=== PATIENT | female | born 1975 | race Caucasian/White ===

== ENCOUNTER → 2019-01-10 | Outpatient (CLI) | payer OTHER | LOC: MC.RAD 09:30 | DX: Z12.31 Encounter for screening mammogram for malignant neoplasm of breast (principal) ==

== ENCOUNTER 2019-04-12 11:00 | Outpatient (RCR) | payer OTHER ==
[2019-05-25] MEDS ORDERED: PROZAC 20MG20 MG PO (12:56)
[2019-05-25] MEDS ORDERED: DESYREL 50MG50 MG PO (12:56)
[2019-05-27] MEDS ORDERED: LOFIBRA54 MG PO (14:51)
[2019-05-27] MEDS ORDERED: ZOFRAN 4MG T4 MG/TAB PO (14:51)
[2019-05-27] MEDS ORDERED: NORCO 325 MG-51 TAB PO (14:52)
== END 2019-07-04 | disposition home or self-care (01) ==
LOC: WSPT
DX: M54.12 Radiculopathy, cervical region (principal)

== ENCOUNTER 2019-05-25 12:43 | Inpatient (IN) | payer OTHER ==
[~2019-05-25] VITALS: Ht 165.1 cm; Wt 70.6 kg
[2019-05-25] MEDS ORDERED: DESYREL 50MG50 MG PO (12:56)
[2019-05-25] MEDS ORDERED: PROZAC 20MG20 MG PO (12:56)
[2019-05-25 13:31] LABS: BASO % 0.4 % (0.0-2.0); EOS # 0.1 (0.0-0.7); EOS % 0.8 % (0-4.0); GRAN # 6.3 (1.4-6.5); GRAN % 79.3 % (42.2-75.2); HEMATOCRIT 41.8 % (37.0-47.0); HEMOGLOBIN 14.8 g/dl (12.5-16.0); LYMPH % 12.9 % (20.0-51.0); MEAN CELL VOLUME 99 fl (80.0-100.0); MEAN CORPUSCULAR HEMOGLOBIN 35 pg (27.0-31.0); MEAN CORPUSCULAR HGB CONC 35 g/dl (33.0-37.0); MEAN PLATELET VOLUME 9.6 fl (7.4-10.4); MONO # 0.5 (0.1-0.6); MONO % 6.3 % (1.7-9.3); PLATELET COUNT 216 K/mm3 (130-400); RED BLOOD COUNT 4.21 M/mm3 (4.10-5.30)
[2019-05-25 13:41] LABS: BILIRUBIN,TOTAL 2.4 mg/dL (0.0-1.0); POTASSIUM 3.6 mmol/L (3.4-5.0)
[2019-05-25 14:11] LABS: CALCIUM 9.7 mg/dL (8.4-10.2); CREATININE, serum 0.83 (0.52-1.25); TOTAL PROTEIN 8.9 gm/dL (6.4-8.2)
[2019-05-25 14:43] LABS: COLLECTION METHOD CLEAN CATCH
[2019-05-25 14:52] LABS: MUCOUS Present /lpf; PH 5 (5-8); URINE APPEARANCE Hazy; URINE BACTERIA Moderate /hpf; URINE BILIRUBIN Negative (NEGATIVE); URINE BLOOD 1+ (NEGATIVE); URINE COLOR Amber; URINE GLUCOSE Negative (NEGATIVE); URINE KETONE 2+ (NEGATIVE); URINE LEUKOCYTE ESTERASE Negative (NEGATIVE); URINE NITRATE Negative (NEGATIVE); URINE PROTEIN(semi-quant) 2+ (NEGATIVE); URINE RBC 0-2 /hpf; URINE UROBILINOGEN Negative (NEGATIVE)
--- NOTE | 2019-05-25 16:35 | NUR ---
Pt arrived to room 307 at this time. She is A/O x3, pt currently reports having abdominal pain to entire stomach. No nausea at this time. Pt reports she has not had a BM since Wednesday. IV to LAC free from complications. POC discussed with patient who verbalizes understanding. No needs at this time. Plan to remain NPO for time being.
[2019-05-25 16:56] VITALS: BP 158/83; PULSE 81; TEMP 99.2
--- NOTE | 2019-05-25 18:45 | NUR ---
PRN Morphine given to patient previously, pt reports pain went from 7 to a 6. Still having discomfort, Dr. Crow notified, new orders received. Second dose of pain medication administered, pt reports no improvement pain is "maintained". No nausea. POC discussed with patient who verbalizes understanding. Report given to ESTEFANY Thomas.
--- NOTE | 2019-05-25 19:00 | NUR ---
Patient continuing to complain of severe pain to abdomen after receiving PRN Morphine. Spoke with Dr. Crow. New order for Dilaudid 0.5 mg po Q4H PRN for pain.
[2019-05-25 19:12] VITALS: BP 146/77; PULSE 82; TEMP 98.6
--- NOTE | 2019-05-25 19:30 | NUR ---
Patient given PRN Dilaudid 0.5 mg IV at this time. Dr. Crow in with patient at this time.
--- NOTE | 2019-05-25 20:30 | NUR ---
Patient is alert and oriented, and able to make needs known. Reports pain to be at a 4 at this time, after having received PRN Dilaudid. Peripheral IV to left forearm patent. Site is without redness, warmth, swelling, and pain. NS running at 100 ml/hr. Denies SOB and dyspnea. LS CTA. Respirations even and unlabored. HRR. BSAx4. Capillary refill less than 3 seconds. Non-tenting skin turgor. No edema. Resting in bed watching TV at this time. Given mouth moisturizer and toothettes with water to dip them in for dry mouth. Voices no other questions, needs, or concerns at this time. Call light is within reach.
[2019-05-26] VITALS (7 sets, daily range): BP systolic 98–131; BP diastolic 51–78; PULSE 70–92; TEMP 98–98.7
--- NOTE | 2019-05-26 01:35 | NUR ---
Patient has been alternating PRN Morphine and Dilaudid per orders, and pain has been managed better since adding Dilaudid PRN. Continues to be NPO at this time. NS continues to run at 100 ml/hr per orders. Mouth moisturizer and toothettes were effective with helping with dry mouth. Voices no other questions, needs, or concerns at this time.
--- NOTE | 2019-05-26 05:20 | NUR ---
Pain continues to be controlled with pain medication as ordered. Voices no other questions, needs, or concerns at this time. Resting in bed with call light within reach.
[2019-05-26 06:10] LABS: BASO % 0.6 % (0.0-2.0); EOS # 0.1 (0.0-0.7); EOS % 2.2 % (0-4.0); GRAN # 3.3 (1.4-6.5); GRAN % 71.4 % (42.2-75.2); LYMPH # 0.9 (1.2-3.4); LYMPH % 18.9 % (20.0-51.0); MEAN CORPUSCULAR HGB CONC 34 g/dl (33.0-37.0); MEAN PLATELET VOLUME 9.9 fl (7.4-10.4); MONO # 0.3 (0.1-0.6); MONO % 6.5 % (1.7-9.3); PLATELET COUNT 147 K/mm3 (130-400); RED BLOOD COUNT 3.28 M/mm3 (4.10-5.30); REDCELL DISTRIBUTION WIDTH-CV 13.1 % (11.5-14.5)
[2019-05-26 06:16] LABS: ALBUMIN 3.5 gm/dL (3.5-5.0); BILIRUBIN,TOTAL 1.2 mg/dL (0.0-1.0); CALCIUM 7.8 mg/dL (8.4-10.2); CHOLESTEROL RISK RATIO 4.7; CREATININE, serum 0.63 (0.52-1.25); POTASSIUM 3.3 mmol/L (3.4-5.0); TOTAL PROTEIN 6.3 gm/dL (6.4-8.2)
[2019-05-26 06:30] LABS: HEMOGLOBIN 11.5 g/dl (12.5-16.0); MEAN CELL VOLUME 104 fl (80.0-100.0); MEAN CORPUSCULAR HEMOGLOBIN 35 pg (27.0-31.0)
--- NOTE | 2019-05-26 06:54 | NUR ---
Report given to day shift nurse.
--- NOTE | 2019-05-26 07:52 | NUR ---
Pt having abdominal ultrasound at this time. Reports pain 3/10, reports improvement but would like some pain meds when available.
--- NOTE | 2019-05-26 08:49 | NUR ---
Pt assessment complete. Pt is up in room brushing her teeth, she is A/O x4. Her breathing is even and unlabored on RA. Pt denies SOB. Pt denies any N/T. Currently denying N/V. Pt does report abdominal pain 10/30, requesting PRN pain medication as she would like to try and get her pain lower. PRN Dilaudid administered. Pt's abdomen is tender to palpation. Pt denies any BM's to this point, she reports having diarrhea along with N/V up until Wednesday and has had nothing since. Would like to eat today. Low potassium discussed with patient as well as replacement. Pt verbalizes understanding. No needs at this time. Call light within reach. Will continue to monitor.
--- NOTE | 2019-05-26 09:24 | NUR ---
Pain improved to 1 at this time. Worse with movement and palpation.
--- NOTE | 2019-05-26 09:45 | NUR ---
Initial visit; Patient thanked Rn Orthopaedic for looking in on her and offering prayer and God's blesings.
--- NOTE | 2019-05-26 14:44 | NUR ---
Plan to return home independently. SW met with patient in room. 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 Patient reports that she has a friend Isabella Tovar who will support her at home. Patient denies having a DPOA-HC, declined HHS, and Denies any DME use. Patient reports PCP Sakshi Luna. Patient reports obtaining RX from [facility] without difficulty. No additonal care concerns reported. Action: NHUNG educated on home health and community support. No additional concerns identified.
--- NOTE | 2019-05-26 18:25 | NUR ---
Pt had a better day. Denied the sharp pains, reports more tenderness worse with movement. No BM today. Tolerating clears, no N/V. Kpad provided to patient. IVF infusing without complications. No needs at this time.
--- NOTE | 2019-05-26 19:20 | NUR ---
Patient assessed at this time. Alert and oriented x 4, and able to make needs known. Given PRN Morphine for pain to abdomen/back as requested. Peripheral IV to left AC is without redness, warmth, swelling, and pain. NS running at 100 ml/hr per orders. Denies SOB and dyspnea. LS CTA. Respirations even and unlabored. HRR. Capillary refill less than 3 seconds. Non-tenting skin turgor. BSAx4. No edema. Given jello and popsicle as requested. Voices no other questions, needs, or concerns at this time. Resting in bed watching TV at this time. K-pad to abdomen for pain relief as well. Call light is within reach.
--- NOTE | 2019-05-26 21:45 | NUR ---
Patient called and stated she was ready to go to bed. Requested PRN Dilaudid and Trazadone. Given per orders. Voiced no other questions, needs, or concerns at this time. Resting in bed with call light within reach.
--- NOTE | 2019-05-27 03:14 | NUR ---
Patient woke up and complained of pain. Given PRN Dilaudid per orders. Voices no other questions, needs, or concerns at this time. Resting in bed with call light within reach.
[2019-05-27 03:36] VITALS: BP 107/49; PULSE 64; TEMP 98.3
--- NOTE | 2019-05-27 05:25 | NUR ---
No further complaints of pain or discomfort. Voices no other questions, needs, or concerns at this time. Resting in bed with call light within reach.
[2019-05-27 06:24] LABS: BASO % 0.6 % (0.0-2.0); EOS # 0.1 (0.0-0.7); EOS % 3.4 % (0-4.0); GRAN # 1.9 (1.4-6.5); GRAN % 58.9 % (42.2-75.2); HEMOGLOBIN 11.1 g/dl (12.5-16.0); LYMPH # 0.9 (1.2-3.4); LYMPH % 29.3 % (20.0-51.0); MEAN CELL VOLUME 104 fl (80.0-100.0); MEAN CORPUSCULAR HEMOGLOBIN 34 pg (27.0-31.0); MEAN CORPUSCULAR HGB CONC 33 g/dl (33.0-37.0); MEAN PLATELET VOLUME 9.6 fl (7.4-10.4); MONO # 0.2 (0.1-0.6); MONO % 7.5 % (1.7-9.3); PLATELET COUNT 155 K/mm3 (130-400); RED BLOOD COUNT 3.23 M/mm3 (4.10-5.30); REDCELL DISTRIBUTION WIDTH-CV 12.9 % (11.5-14.5)
[2019-05-27 06:26] LABS: ALBUMIN 3.5 gm/dL (3.5-5.0); BILIRUBIN,TOTAL 0.9 mg/dL (0.0-1.0); CALCIUM 7.9 mg/dL (8.4-10.2); CREATININE, serum 0.6 (0.52-1.25); POTASSIUM 3.6 mmol/L (3.4-5.0); TOTAL PROTEIN 6.4 gm/dL (6.4-8.2)
[2019-05-27 06:33] LABS: HEMATOCRIT 33.7 % (37.0-47.0)
[2019-05-27 07:53] VITALS: BP 126/64; PULSE 71; TEMP 98
[2019-05-27 11:48] VITALS: BP 121/53; PULSE 81; TEMP 98
--- NOTE | 2019-05-27 12:00 | NUR ---
PT EATING LUNCH. DID HAVE SOME C/O PAIN IN LEFT REAR UPPER FLANK AREA THAT WAS DIFFERENT THEN ORGINGAL PAIN THAT BROUGHT HER INTO ER. THIS NURSE INFORMED PROVIDER, PROVIDER STATED IT WAS FROM PANCREATITIS. MO C/O N/V AT THIS TIME. THIS NURSE PROIVIDED PAIN PILL. NO OTHER ISSUES VOICED AT THIS TIME.
--- NOTE | 2019-05-27 14:00 | NUR ---
PT INQURING ABOUT DISCHARGING. PT STATED HAD NO ISSUES WITH TOLERATING LOW FAT DIET. STATED PAIN MED HAD HELPED CONTROL PAIN. THIS NURSE WILL TALK TO PROVIDER ABOUT DC.
[2019-05-27] MEDS ORDERED: ZOFRAN 4MG T4 MG/TAB PO (14:51)
[2019-05-27] MEDS ORDERED: LOFIBRA54 MG PO (14:51)
[2019-05-27] MEDS ORDERED: NORCO 325 MG-51 TAB PO (14:52)
--- NOTE | 2019-05-27 15:25 | NUR ---
PT DISCHARGE EDUCATION WAS DISCUSSED WITH PT, SIGNATURES OBTAINED. SCRIPT GIVEN TO PT. IV REMOVED. PT STATED THAT SHE NEEDED TO GO TO HER OFFICE TO GET SOME BELONGINGS BEFORE HEADING HOME. THIS NURSE INQUIRED WITH CHARGE NURSE ABOUT ESCORTING PT JAYDON DUE TO PT NEEDING TO GO TO HER OFFICE, CHARGE NURSE STATED THAT LONG PT WAS FEELING FINE AND DENIED NEED FOR ESCORT THAT WOULD BE OKAY. PT STATED THAT SHE FELT FINE TO LEAVE WITHOUT ESCORT. NO OTHER ISSUES OR CONSERNS VOICED.
== END 2019-05-27 15:25 | disposition home or self-care (01) | DRG 439 ==
LOC: COL.ER 12:43 → MEDICAL 15:34
PROVIDERS: Nurse Practitioner Family; Physician Assistant; ADMIT Family Medicine
DX: K85.20 Alcohol induced acute pancreatitis without necrosis or infection (principal); F33.9 Major depressive disorder, recurrent, unspecified; G47.00 Insomnia, unspecified; L30.9 Dermatitis, unspecified; E87.6 Hypokalemia; E78.1 Pure hyperglyceridemia
CPT/HCPCS: 99222-AI; 99233-AI; 99239; J1170; J1650; J1885; J2270; J2405; J3010; J3480; J7030; Q9967

== ENCOUNTER 2020-10-20 09:29 | Inpatient (IN) | payer BC ==
[~2020-10-20] VITALS: Ht 165.1 cm; Wt 68.2 kg
[~2020-10-20 09:29] MED LIST: DESYREL 50MG50 MG PO; LOFIBRA54 MG PO; NORCO 325 MG-51 TAB PO; PROZAC 20MG20 MG PO; ZOFRAN 4MG T4 MG/TAB PO
[2020-10-20 10:10] LABS: HEMOGLOBIN 12.4 g/dl (12.5-16.0); MEAN CELL VOLUME 93 fl (80.0-100.0); MEAN CORPUSCULAR HEMOGLOBIN 33 pg (27.0-31.0); MEAN CORPUSCULAR HGB CONC 35 g/dl (33.0-37.0); MEAN PLATELET VOLUME 9.4 fl (7.4-10.4); PLATELET COUNT 219 K/mm3 (130-400); RED BLOOD COUNT 3.79 M/mm3 (4.10-5.30); REDCELL DISTRIBUTION WIDTH-CV 14.3 % (11.5-14.5)
[2020-10-20 10:14] LABS: HEMATOCRIT 35.2 % (37.0-47.0)
[2020-10-20 10:21] LABS: BILIRUBIN,TOTAL 2.9 mg/dL (0.0-1.0); C-REACTIVE PROTEIN 0.7 mg/dL (0.0-0.9); CALCIUM 9.3 mg/dL (8.4-10.2); CREATININE, serum 0.55 (0.52-1.25); POTASSIUM 3.4 mmol/L (3.4-5.0)
[2020-10-20 10:51] LABS: BAND 1 % (0-10); BASOPHIL 1 % (0-2); LYMPHOCYTE 4 % (20.0-51.0); NEUTROPHILS 91 % (42.0-75.2); PLATELET ESTIMATE NORMAL (NORMAL)
[2020-10-20 11:31] LABS: CREATINE KINASE 149 U/L (30-135); LIPASE 164 U/L (23-300)
[2020-10-20 11:33] LABS: ALCOHOL(ethanol),MEDICAL < 10 mg/dL
[2020-10-20 13:06] LABS: COLLECTION METHOD CLEAN CATCH
[2020-10-20 13:12] LABS: PH 9 (5-8); SQUAMOUS EPITHELIAL None Seen /hpf; URINE APPEARANCE Clear; URINE BACTERIA None Seen /hpf; URINE BILIRUBIN Negative (NEGATIVE); URINE BLOOD Negative (NEGATIVE); URINE COLOR Straw; URINE GLUCOSE Negative (NEGATIVE); URINE KETONE 1+ (NEGATIVE); URINE LEUKOCYTE ESTERASE Negative (NEGATIVE); URINE NITRATE Negative (NEGATIVE); URINE PROTEIN(semi-quant) Negative (NEGATIVE); URINE RBC 0-2 /hpf; URINE UROBILINOGEN Negative (NEGATIVE)
[2020-10-20] MEDS ORDERED: PROZAC40 MG PO (13:27)
--- NOTE | 2020-10-20 15:00 | NUR ---
Patient admission assessment completed, alert/oriented, vital signs stable, denies pain or discomfort, reports feelings better after having received med sin the ED, some mild tremors noted visually, heart RRR/ distal pules are palapble, lungs CTA/ no resp.difficulty, started on IVF and Mg replacement, patient denies heavy ETOH use/ labs and clinical presenttation point towards ETOH withdraw however and hosptialist ordered for CIWA protocol, meds/allegies/pharmy reviewed, placed on no free water/ 2L fluid restrict due to low sodium, will continue to monitor
[2020-10-20 16:36] VITALS: BP 149/93; PULSE 105; TEMP 99.5
[2020-10-20 18:05] LABS: CALCIUM 9.3 mg/dL (8.4-10.2); CREATININE, serum 0.72 (0.52-1.25); POTASSIUM 3.3 mmol/L (3.4-5.0)
--- NOTE | 2020-10-20 19:05 | NUR ---
Received report from Kieran. Patient awake in bed. She is alert and oriented. Call light within reach. She's requesting for Trazodone before she sleeps and additional Gatorade.
[2020-10-20 19:18] VITALS: BP 132/75; PULSE 104; TEMP 98.6
--- NOTE | 2020-10-20 20:05 | NUR ---
Called Tara OVALLE that patient's latest potassium was 3.3 and asked if we can do potassium protocol. Tara placed an order. Assesment done.Informed patient about potassium replacement and monitoring her vital signs every 2 hours. Patient verbalizes understanding. She complains of mild headache. Tylenol will be given. She is independent in the room. Lungs are clear. Call light within reach.
[2020-10-20 21:53] VITALS: BP 133/76; PULSE 100; TEMP 98.7
[2020-10-20 23:19] VITALS: BP 129/73; PULSE 102; TEMP 97.8
[2020-10-21 02:04] VITALS: BP 132/75; PULSE 112; TEMP 98.8
[2020-10-21 03:49] VITALS: BP 140/83; PULSE 80; TEMP 97.8
[2020-10-21 06:08] VITALS: BP 138/70; PULSE 79; TEMP 98.1
[2020-10-21 06:22] LABS: EOS # 0.1 (0.0-0.7); EOS % 1.7 % (0-4.0); GRAN # 1.7 (1.4-6.5); GRAN % 58.9 % (42.2-75.2); LYMPH # 0.9 (1.2-3.4); LYMPH % 31.6 % (20.0-51.0); MEAN CELL VOLUME 96 fl (80.0-100.0); MEAN CORPUSCULAR HEMOGLOBIN 33 pg (27.0-31.0); MEAN CORPUSCULAR HGB CONC 34 g/dl (33.0-37.0); MONO # 0.2 (0.1-0.6); MONO % 6.5 % (1.7-9.3); PLATELET COUNT 190 K/mm3 (130-400); RED BLOOD COUNT 3.94 M/mm3 (4.10-5.30); REDCELL DISTRIBUTION WIDTH-CV 14.9 % (11.5-14.5)
[2020-10-21 06:37] LABS: ALBUMIN 4.4 gm/dL (3.5-5.0); BILIRUBIN,TOTAL 1.5 mg/dL (0.0-1.0); CALCIUM 8.9 mg/dL (8.4-10.2); CREATININE, serum 0.64 (0.52-1.25); MAGNESIUM 2.6 mg/dL (1.6-2.3); POTASSIUM 3.3 mmol/L (3.4-5.0); TOTAL PROTEIN 7.6 gm/dL (6.4-8.2)
[2020-10-21 07:40] VITALS: BP 143/94; PULSE 82; TEMP 97.9
--- NOTE | 2020-10-21 07:50 | NUR ---
Pt assessment complete. Pt laying in bed upon entry, she is A/O x4. Her breathing is even and unlabored on RA. Denies SOB. Pt currently denies pain. No N/V, drinking gatorade without issues. IVF infusing. No further needs call light within reach.
[2020-10-21] MEDS ORDERED: MAG-OX 400400 MG/TAB PO (08:43)
--- NOTE | 2020-10-21 09:20 | NUR ---
Initial visit; Patient states she is due to be discharged today and thanked Legal Researcher for looking in on her, listening and offering prayer and God's blessings.
[2020-10-21 09:53] VITALS: BP 124/72; PULSE 96; TEMP 98.3
--- NOTE | 2020-10-21 10:35 | NUR ---
IV to RAC dc'd, catheter tip intact. Discharge instructions and paperwork reviewed with patient. All questions answered at this time. Awaiting ride at this time.
--- NOTE | 2020-10-21 10:56 | NUR ---
Pt walked out of facility at this time.
[2020-10-21 17:34] LABS: FOLATE (FOLIC ACID) 9.9 ng/mL (7.0-31.4)
== END 2020-10-21 10:57 | disposition home or self-care (01) | DRG 641 ==
LOC: COL.ER 09:29 → MEDICAL 12:21
PROVIDERS: Physician Assistant; ADMIT Internal Medicine
DX: E87.1 Hypo-osmolality and hyponatremia (principal); F10.139 Alcohol abuse with withdrawal, unspecified; E87.6 Hypokalemia; E87.2 Acidosis; E83.42 Hypomagnesemia; R20.2 Paresthesia of skin; F32.9 Major depressive disorder, single episode, unspecified; G47.00 Insomnia, unspecified; Z90.89 Acquired absence of other organs; Z98.51 Tubal ligation status
CPT/HCPCS: 99222-AI; 99239; J1650; J1885; J2060; J2405; J3475; J7030

== ENCOUNTER 2020-10-22 21:59 | Observation (INO) | payer BC ==
[~2020-10-22] VITALS: Ht 165.1 cm; Wt 68.2 kg
[~2020-10-22 21:59] MED LIST changes: +MAG-OX 400400 MG/TAB PO; +PROZAC40 MG PO
[2020-10-22 22:46] LABS: COLLECTION METHOD CLEAN CATCH
[2020-10-22 22:51] LABS: BASO % 0.4 % (0.0-2.0); EOS # 0.1 (0.0-0.7); EOS % 0.8 % (0-4.0); GRAN # 5.3 (1.4-6.5); GRAN % 72.5 % (42.2-75.2); HEMATOCRIT 39.5 % (37.0-47.0); HEMOGLOBIN 13.6 g/dl (12.5-16.0); LYMPH # 1.6 (1.2-3.4); LYMPH % 21.5 % (20.0-51.0); MEAN CELL VOLUME 97 fl (80.0-100.0); MEAN CORPUSCULAR HEMOGLOBIN 34 pg (27.0-31.0); MEAN CORPUSCULAR HGB CONC 34 g/dl (33.0-37.0); MEAN PLATELET VOLUME 10.2 fl (7.4-10.4); MONO # 0.3 (0.1-0.6); MONO % 4.4 % (1.7-9.3); PLATELET COUNT 178 K/mm3 (130-400); RED BLOOD COUNT 4.06 M/mm3 (4.10-5.30); REDCELL DISTRIBUTION WIDTH-CV 14.6 % (11.5-14.5)
[2020-10-22 22:55] LABS: PH 6 (5-8); SQUAMOUS EPITHELIAL 0-2 /hpf; URINE APPEARANCE Clear; URINE BACTERIA Rare /hpf; URINE BILIRUBIN Negative (NEGATIVE); URINE BLOOD Negative (NEGATIVE); URINE COLOR Straw; URINE GLUCOSE Negative (NEGATIVE); URINE KETONE Negative (NEGATIVE); URINE LEUKOCYTE ESTERASE Negative (NEGATIVE); URINE NITRATE Negative (NEGATIVE); URINE PROTEIN(semi-quant) Negative (NEGATIVE); URINE RBC 0-2 /hpf; URINE UROBILINOGEN Negative (NEGATIVE)
[2020-10-22 23:01] LABS: ALBUMIN 4.6 gm/dL (3.5-5.0); BILIRUBIN,TOTAL 1.3 mg/dL (0.0-1.0); CALCIUM 8.9 mg/dL (8.4-10.2); CREATININE, serum 0.62 (0.52-1.25); TOTAL PROTEIN 7.8 gm/dL (6.4-8.2)
[2020-10-22 23:12] LABS: POTASSIUM 2.9 mmol/L (3.4-5.0)
--- NOTE | 2020-10-23 02:23 | NUR ---
PATIENT WAS RECEIVED FROM ED ON A CART ON RA.HAS IVF IN GOOD PROGRESS.ORIENTATION DONE.NO OTHER NEEDS AT THIS TIME.ASSESSMENT DONE.
[2020-10-23 04:12] VITALS: BP 139/79; PULSE 75; TEMP 97.9
--- NOTE | 2020-10-23 04:27 | NUR ---
PATIENT REPORT OF ABD PAIN DESPITE MORPHINR IV.LISBET MANDUJANO INFORMED.PATIENT INFORMRD OF THE SSME
--- NOTE | 2020-10-23 05:41 | NUR ---
PATIENT DUE MEDS GIVEN ON POTASSIUM ORAL REPLACEMENT,REPORTS PAIN AT 8 NORCO GIVEN,IVFS CONTINUED.NO OTHER NEEDS AT THIS TIME
--- NOTE | 2020-10-23 07:00 | NUR ---
sitting up in bed doubled over c/o pain, bedside shift report received from ESTEFANY Alvarado
[2020-10-23 07:13] LABS: BASO % 0.8 % (0.0-2.0); EOS # 0.1 (0.0-0.7); EOS % 1.5 % (0-4.0); GRAN # 2.5 (1.4-6.5); GRAN % 62.7 % (42.2-75.2); LYMPH # 1.2 (1.2-3.4); LYMPH % 30.4 % (20.0-51.0); MEAN CELL VOLUME 96 fl (80.0-100.0); MEAN CORPUSCULAR HGB CONC 34 g/dl (33.0-37.0); MEAN PLATELET VOLUME 10.2 fl (7.4-10.4); MONO # 0.2 (0.1-0.6); MONO % 4.3 % (1.7-9.3); PLATELET COUNT 148 K/mm3 (130-400); RED BLOOD COUNT 3.53 M/mm3 (4.10-5.30); REDCELL DISTRIBUTION WIDTH-CV 14.6 % (11.5-14.5)
[2020-10-23 07:18] LABS: HEMOGLOBIN 11.5 g/dl (12.5-16.0); MEAN CORPUSCULAR HEMOGLOBIN 33 pg (27.0-31.0)
--- NOTE | 2020-10-23 07:20 | NUR ---
medicated with moprhine 2mg slow IV for c/os pain 05/02,
[2020-10-23 07:27] LABS: ALBUMIN 3.6 gm/dL (3.5-5.0); BILIRUBIN,TOTAL 0.9 mg/dL (0.0-1.0); CALCIUM 8.1 mg/dL (8.4-10.2); CREATININE, serum 0.5 (0.52-1.25); POTASSIUM 4.5 mmol/L (3.4-5.0); TOTAL PROTEIN 6.2 gm/dL (6.4-8.2)
--- NOTE | 2020-10-23 08:00 | NUR ---
in bed with TV on, states some relief from morphine but is not doubled over in pain at this time,
--- NOTE | 2020-10-23 08:30 | NUR ---
full assessment completed, see interventions for further info,
--- NOTE | 2020-10-23 09:45 | NUR ---
watching TV and taking clear liquids slowly, states is still having some pain but it is better, informed her not to have anything else except for water so she can have ultrasound later today
[2020-10-23 09:57] VITALS: BP 144/89; PULSE 81; TEMP 97.8
--- NOTE | 2020-10-23 10:30 | NUR ---
c/o of abdominal pain, medicated with hydrocodone 5mg 1 tab, IV to INT while up to shower and telemetry discontinued
--- NOTE | 2020-10-23 11:20 | NUR ---
shower complete and IV fluids restarted
[2020-10-23 12:00] VITALS: BP 125/83; PULSE 74; TEMP 98.1
--- NOTE | 2020-10-23 12:19 | NUR ---
in bed and appears to be sleeping, resp quiet and easy, eyes closed
--- NOTE | 2020-10-23 14:00 | NUR ---
c/o abdominal pain and medicated with hydrocodone 5mg 1 tab
--- NOTE | 2020-10-23 14:34 | NUR ---
NHUNG met with the patient to discuss discharge plan. The patient lives alone in [place]. She reports independence with ADLs and does not have any DME. The patient's PCP is Dr. Sakshi Her and she receives her medications from [facility]. She reports no difficulties obtaining her meds. The patient does not have a DPOA-HC in EMR, but she states that she believes that she does have one completed and that it designates her father, Federico Mojica (ph#[phone]). Federico and her mother live in [place]. The patient is not and has one child, Judy (ph#[phone]). Judy lives in [place]. The patient plans to return home upon discharge. NHUNG addressed the patient's alcohol use. She states that her last drink was on Wednesday and that she has pretty much been drinking alcohol each day. The patient reports that she is interested in resources for outpatient treatment. NHUNG provided the patient a list [facility] outpatient resources. The patient states that she would like to look the list over and see what would work best for her. She would like to set up any outpatient treatment herself at this time. SW to follow as needed.
--- NOTE | 2020-10-23 16:50 | NUR ---
extractions technician in to complete abdominal ultrasound
[2020-10-23 17:29] VITALS: BP 141/86; PULSE 79; TEMP 98.1
--- NOTE | 2020-10-23 18:45 | NUR ---
bedside shift report given to ESTEFANY Alvarado
[2020-10-23 19:07] VITALS: BP 132/71; PULSE 84; TEMP 98.3
--- NOTE | 2020-10-23 20:56 | NUR ---
PATIENT IS CALM IN THE ROOM DUE MEDS GIVEN,ASSESSMENT DONE.REPORTS PAIN AT 2 NORCO GIVEN.NO OTHER NEEDS AT THIS TIME
[2020-10-23 23:47] VITALS: BP 110/71; PULSE 85; TEMP 98.1
[2020-10-24 03:58] VITALS: BP 114/68; PULSE 85; TEMP 98.4
--- NOTE | 2020-10-24 06:02 | NUR ---
PATIENT HAD A CALM NIGHT.DUE MEDS GIVEN,IVFS ON GOOD PROGRESS.NO OTHER NEEDS AT THIS TIME.
[2020-10-24 07:42] VITALS: BP 130/72; PULSE 70; TEMP 98.3
--- NOTE | 2020-10-24 10:36 | NUR ---
Initial visit (this stay); Patient thanked Assistant Football Coach for looking in on her and listening, offering encouragement as she told her story and offering prayer and God's blessings.
[2020-10-24 11:32] VITALS: BP 135/70; PULSE 75; TEMP 97.6
--- NOTE | 2020-10-24 13:23 | NUR ---
Agree with the student nurse assessment. Patient A&Ox3. VSS. IV CDI. Patient wanting to get diet advanced and has since tolerated a bland diet. Is hoping to go home soon. Denies pain and discomfort. No further needs expressed from the patient. Call light within reach
--- NOTE | 2020-10-24 13:56 | NUR ---
Primary nurse was assisted with [phone] patient care by [employer] student Torri Alfonso and [employer] instructor Nancy Escobedo RN-BC.
[2020-10-24] MEDS ORDERED: PROTONIX 40MG T40 MG PO (14:22)
[2020-10-24] MEDS ORDERED: DUO-KAPS1 CAP PO (14:23)
[2020-10-24] MEDS ORDERED: B-121000 MCG PO (14:24)
--- NOTE | 2020-10-24 15:48 | NUR ---
Nurse received a call from the surgical unit director saying the patient was at the nursing station and requesting that her IV be removed and that she was leaving. This nurse walked to the surgical nurses station and went over the discharge paperwork with the patient. Nurse informed the patient that her discharge paperwork was pending on a f/u appointment and the nurse was going to go over the discharge paperwork when the call was received. Patient still upset, discharge paperwork signed and patient verbalized an understanding to follow doctors orders.
== END 2020-10-24 15:45 | disposition home or self-care (01) ==
LOC: COL.ER 21:59 → MEDICAL 10-23 00:31
PROVIDERS: Physician Assistant; Student in an Organized Health Care Education/Training Program; ADMIT Internal Medicine
DX: K85.90 Acute pancreatitis without necrosis or infection, unspecified (principal); K86.1 Other chronic pancreatitis; E87.2 Acidosis; E87.1 Hypo-osmolality and hyponatremia; E83.51 Hypocalcemia; F32.9 Major depressive disorder, single episode, unspecified; G47.00 Insomnia, unspecified; R79.89 Other specified abnormal findings of blood chemistry; M12.9 Arthropathy, unspecified; F10.10 Alcohol abuse, uncomplicated; E53.8 Deficiency of other specified B group vitamins; Z90.89 Acquired absence of other organs; Z98.51 Tubal ligation status; Z79.899 Other long term (current) drug therapy
CPT/HCPCS: 99233-AI; G0378; J1650; J2270; J3411; J3475; J3480; J7030; Q9967

== ENCOUNTER → 2021-01-07 | Outpatient (CLI) | payer BC ==
[~2021-01-07] MED LIST changes: +B-121000 MCG PO; +DUO-KAPS1 CAP PO; +PROTONIX 40MG T40 MG PO
== END ==
LOC: MC.RAD 10:50
DX: Z12.31 Encounter for screening mammogram for malignant neoplasm of breast (principal)

== ENCOUNTER → 2022-01-08 | Outpatient (CLI) | payer BC | LOC: MC.RAD 16:38 | DX: Z12.31 Encounter for screening mammogram for malignant neoplasm of breast (principal) ==

== ENCOUNTER → 2024-02-08 | Outpatient (CLI) | payer BC | LOC: MC.RAD 14:13 | DX: Z12.31 Encounter for screening mammogram for malignant neoplasm of breast (principal) ==